=== PATIENT | female | born 1980 | race Caucasian/White ===

== ENCOUNTER 2019-06-30 08:47 | Day surgery (SDC) | payer OTHER ==
[~2019-06-30] VITALS: Ht 157.5 cm; Wt 142.0 kg
[2019-06-30] MEDS ORDERED: MIDAZOLAM 2 MG/2 ML VIAL ONE (09:56)
[2019-06-30] MEDS ORDERED: LIDOCAINE 2% 100 MG/5 ML UJET TP ONE (09:56)
[2019-06-30] MEDS ORDERED: fentaNYL 0.05 MG/ML VIAL ONE (09:56)
[2019-06-30] MEDS ORDERED: MIDAZOLAM 2 MG/2 ML VIAL IVP ONE (10:09)
[2019-06-30] MEDS ORDERED: fentaNYL 0.05 MG/ML VIAL IVP ONE (10:13)
== END 2019-06-30 11:11 | disposition home or self-care (01) ==
LOC: MDS 08:47 → MMU 08:52 → MDS 11:11
PROVIDERS: ATTEND Internal Medicine Gastroenterology
DX: R14.0 Abdominal distension (gaseous) (principal); K57.30 Diverticulosis of large intestine without perforation or abscess without bleeding; K21.0 Gastro-esophageal reflux disease with esophagitis; E66.01 Morbid (severe) obesity due to excess calories; D64.9 Anemia, unspecified; J45.909 Unspecified asthma, uncomplicated
CPT/HCPCS: 36415; 43239; 45378; 81025; 86677; J2250; J3010